=== PATIENT | female | born 1960 | race Caucasian/White ===

== ENCOUNTER 2018-10-18 18:03 | Emergency (ER) | payer BC ==
--- NOTE | 2018-10-18 18:16 | EDM.PDOC ---
ED HPI GENERAL MEDICAL PROBLEM - General Chief Complaint: ENT Problem Stated Complaint: FB STUCK IN EAR Time Seen by Provider: 10/18/18 18:06 Source of Information: Reports: Patient History Limitations: Reports: No Limitations - History of Present Illness INITIAL COMMENTS - FREE TEXT/NARRATIVE: The patient presents with a FB in her left ear. She was taking her hearing aid out and a piece of it was stuck. She could not get it out. She has no pain. Onset: Sudden Duration: Minutes: Location: Reports: Other (Left ear) Severity: Mild Improves with: Reports: None Worsens with: Reports: None Associated Symptoms: Reports: No Other Symptoms - Related Data Allergies Allergy/AdvReac Type Severity Reaction Status Date / Time No Known Allergies Allergy Verified 10/18/18 18:10 Home Meds: Home Meds Levothyroxine Sodium [Synthroid] 25 mcg PO DAILY 10/18/18 [History] atorvaSTATin [Lipitor] 40 mg PO DAILY 10/18/18 [History] Past Medical History Cardiovascular History: Reports: Hypertension Endocrine/Metabolic History: Reports: Hypothyroidism - Past Surgical History Female Surgical History: Reports: Section Social & Family History - Tobacco Use Smoking Status *Q: Never Smoker Second Hand Smoke Exposure: No - Caffeine Use Caffeine Use: Reports: Coffee - Recreational Drug Use Recreational Drug Use: No ED ROS ENT - Review of Systems Review Of Systems: See Below Constitutional: Reports: No Symptoms HEENT: Reports: No Symptoms, Other (FB left ear) Respiratory: Reports: No Symptoms Cardiovascular: Reports: No Symptoms Endocrine: Reports: No Symptoms GI/Abdominal: Reports: No Symptoms : Reports: No Symptoms ED EXAM, ENT - Physical Exam Exam: See Below Exam Limited By: No Limitations General Appearance: Alert, No Apparent Distress Ears: Other (Left canal has a black piece of hearing aid left in the canal) Mouth/Throat: Normal Inspection Course - Vital Signs Last Recorded V/S: Last Vital Signs Temp 97.3 F 10/18/18 18:07 Pulse 72 10/18/18 18:07 Resp 16 10/18/18 18:07 BP Pulse Ox 95 10/18/18 18:07 - Re-Assessments/Exams Free Text/Narrative Re-Assessment/Exam: 10/18/18 18:14 I used some forceps and I was able to remove it without problems. Departure - Departure Time of Disposition: 18:15 Disposition: Home, Self-Care 01 Condition: Good Clinical Impression: Foreign body in left ear Qualifiers: Encounter type: initial encounter Qualified Code(s): T16.2XXA - Foreign body in left ear, initial encounter - Discharge Information *PRESCRIPTION DRUG MONITORING PROGRAM REVIEWED*: Not Applicable *COPY OF PRESCRIPTION DRUG MONITORING REPORT IN PATIENT MARY: Not Applicable Referrals: Era Bautista MD [Primary Care Provider] - Additional Instructions: Please return if you have any more problems.
== END 2018-10-18 18:20 | disposition home or self-care (01) ==
LOC: JD.ED 18:03
DX: T16.2XXA Foreign body in left ear, initial encounter (principal); E03.9 Hypothyroidism, unspecified; Z79.899 Other long term (current) drug therapy
CPT/HCPCS: 69200; 99281; 99282-25